=== PATIENT | female | born 1975 | race Caucasian/White ===

== ENCOUNTER → 2016-10-20 | Outpatient (CLI) | payer BC ==
--- NOTE | 2016-10-20 08:55 | RAD ---
DATE: 10/20/2016 EXAM: MAMMO EMMA SCREENING BILATERAL HISTORY: Routine screening, family history COMPARISON: 08/24/2014 This study was interpreted with the benefit of Computerized Aided Detection (CAD). FINDINGS: Breast Density: HETERO The breast parenchyma Is heterogeneously dense, which could reduce sensitivity of mammography. Breast parenchyma level C. There is a small well-circumscribed mass identified in the left outer lower breast best seen on image 13 of cc view. IMPRESSION: Well-circumscribed mass or cyst identified in the left outer lower breast best seen on image 13 on the cc view. Recommend ultrasound left breast BI-RADS CATEGORY: 0 INCOMPLETE: NEEDS ADDITIONAL IMAGING EVALUATION AND/OR PRIOR MAMMOGRAMS FOR COMPARISON. RECOMMENDED FOLLOW-UP: ADD ADDITIONAL IMAGING PQRS compliance statement: Patient information was entered into a reminder system with a target due date immediate recall for the next mammogram. Mammography is a sensitive method for finding small breast cancers, but it does not detect them all and is not a substitute for careful clinical examination. A negative mammogram does not negate a clinically suspicious finding and should not result in delay in biopsying a clinically suspicious abnormality. "Our facility is accredited by the [employer] Mammography Program."
== END | disposition home or self-care (01) ==
LOC: MAMMO 07:42
PROVIDERS: ATTEND Obstetrics & Gynecology
DX: Z12.31 Encounter for screening mammogram for malignant neoplasm of breast (principal)
CPT/HCPCS: 77063; G0202; 77067

== ENCOUNTER → 2016-10-25 | Outpatient (CLI) | payer BC ==
--- NOTE | 2016-10-25 10:09 | RAD ---
Indication well-defined mass is seen on screening mammography. Ultrasound of the left breast was performed. The breast was scanned from the 2 through the 6:00 position. Note is made of the mammogram 5 days earlier and the accompanying report. There are several well-defined hypoechoic masses, compatible with cysts, from the 2 to the 6:00 position. These are compatible with the findings on mammography. No dominant soft tissue mass is seen. Most of the cysts measure approximately 4 to 5 mm in greatest dimension. IMPRESSION:: Numerous cysts in the left breast. The findings are benign. Follow-up mammography Oct, 2017 advised. BI-RADS 2. Benign findings
== END | disposition home or self-care (01) ==
LOC: US 08:54
PROVIDERS: ATTEND Obstetrics & Gynecology
DX: R92.8 Other abnormal and inconclusive findings on diagnostic imaging of breast (principal)
CPT/HCPCS: 76641

== ENCOUNTER → 2017-06-14 | Outpatient (CLI) | payer BC ==
--- NOTE | 2017-06-14 08:51 | RAD ---
Ultrasound pelvis Indication: Polymenorrhea started a year ago. Technique: Grayscale, color Doppler and spectral waveform images of the pelvis obtained. Comparison: None Findings: The uterus measures 9.4 x 5.0 x 6.8 cm (longitudinal, AP, transverse). The endometrial stripe measures 1 cm and is within normal limits. The right ovary demonstrates evidence of blood flow and measures 3.9 x 2.6 x 3.5 cm with multiple follicles. The left ovary measures 3.0 x 2.1 x 2.1 cm and demonstrates evidence of blood flow. Trace free pelvic fluid. Cervix within normal limits. Impression: 1. No fibroids. 2. Endometrial stripe measures 1 cm and is within normal limits.
== END | disposition home or self-care (01) ==
LOC: US 07:39
PROVIDERS: ATTEND Obstetrics & Gynecology
DX: N92.0 Excessive and frequent menstruation with regular cycle (principal)
CPT/HCPCS: 76830; 76856